=== PATIENT | female | born 1995 | race Caucasian/White ===

== ENCOUNTER → 2019-03-05 | Outpatient (CLI) | payer OTHER ==
[~2019-03-05] MED LIST: GADOBUTROL 10 ML VIAL IVP ONE
== END ==
LOC: FIMAGING 11:46
PROVIDERS: ATTEND Internal Medicine Hematology & Oncology
DX: Z12.39 Encounter for other screening for malignant neoplasm of breast (principal); Z80.3 Family history of malignant neoplasm of breast; Z15.01 Genetic susceptibility to malignant neoplasm of breast
CPT/HCPCS: A9585; C8908